=== PATIENT | female | born 1970 | race Caucasian/White ===

== ENCOUNTER → 2021-06-24 11:32 | Outpatient (CLI) | payer OTHER, SELFPAY ==
--- NOTE | ~2021-06-24 | MM_ITS ---
EXAMINATION: MM screening bren BI w vera HISTORY: Screening TECHNIQUE: Craniocaudal and mediolateral oblique 3-D tomosynthesis images were obtained and synthetic 2-D images were generated. CAD analysis was submitted and interpreted. COMPARISON: Comparison to multiple prior studies sequentially, with oldest reviewed study dated 09/03. BREAST PARENCHYMAL COMPOSITION: The breasts are heterogeneously dense, which may obscure small masses . FINDINGS: There is no evidence of suspicious mass, calcification, or architectural distortion to sugg est malignancy in either breast. There has been no suspicious interval change. IMPRESSION: 1. No mammographic evidence of malignancy. 2. Recommend routine screening mammography in one year. BI-RADS Category 1: Negative Reviewed, dictated and finalized at location A. [employer] ASS[employer]
== END ==
PROVIDERS: PCP Family Medicine; Visit Provider Family Medicine
DX: Z12.31 Encounter for screening mammogram for malignant neoplasm of breast (principal)
CPT/HCPCS: 77063; 77067

== ENCOUNTER 2022-06-10 00:43 | Day surgery (SDC) | payer OTHER, SELFPAY ==
[2022-05-26 15:23] VITALS: BMI 32.0
--- NOTE | 2022-06-09 15:09 | PM.HPGS ---
History of Present Illness History of Present Illness Consent: Risks, benefits, and alternatives have been discussed and questions answered. Patient agrees to proceed with procedure. Chief complaint: neoplasm screening Narrative: Tri Le is a 51 year old female who was referred for colon cancer screening. Review of Systems Review of Systems: All systems reviewed & are unremarkable except as noted in HPI and below PMFSH Past Medical History Medical History Essential hypertension Family history of rectal cancer FH: diabetes mellitus Hyperlipidemia, unspecified Hypothyroidism, unspecified Insomnia Moderate episode of recurrent major depressive disorder Family History Family History Father Rectal cancer Social History Social History Smoking status: Never smoker Second hand tobacco smoke exposure: No Alcohol intake: never Substance use: never Substance use type: does not use Living arrangements: with family Spiritual care concerns: No Meds Home Medications and Allergies Home Medications Medication Instructions Recorded Confirmed Type cetirizine 10 mg tablet 10 mg PO DAILY PRN Allergy Symptoms 10/29/21 05/26/22 History omeprazole 40 mg capsule,delayed 40 mg PO DAILY #30 caps 02/08/22 05/26/22 Rx release lisinopril 10 mg tablet 10 mg PO DAILY #90 tabs 05/17/22 05/26/22 Rx bupropion HCl 300 mg 24 hr tablet, 300 mg PO DAILY 05/26/22 05/26/22 History extended release levothyroxine 100 mcg tablet 100 mcg PO DAILY 05/26/22 05/26/22 History sertraline 100 mg tablet 100 mg PO DAILY 05/26/22 05/26/22 History simvastatin 20 mg tablet 20 mg PO DAILY 05/26/22 05/26/22 History Allergies Allergy/AdvReac Type Severity Reaction Status Date / Time No Known Allergies Allergy Mild Verified 05/26/22 15:23 Exam Const: General: alert Orientation/consciousness: patient oriented x3 Resp: Auscultation: clear to auscultation bilaterally Cardio: Rhythm: regular rhythm GI: GI Palp: Yes Soft to palpation and No Tenderness to palpation present (GI) Neuro: General: patient oriented x3 Assessment and Plan Assessment and plan (1) Colon cancer screening: Code(s): Z12.11 - Encounter for screening for malignant neoplasm of colon Status: Acute Assessment and Plan: Colonoscopy with possible biopsy or polypectomy or cautery or injection of substances.
[2022-06-10 09:12] VITALS: BP 144/84; PULSE 92; RESP 18; TEMP 36.6; O2SAT 100; BMI 35.2
[2022-06-10] MEDS: LACTATED RINGERS 1,000 ML 150 ML IV CONT (09:37)
[2022-06-10] MEDS: SIMETHICONE ORAL SUSPENSION 20 MG/0.3 ML 30 ML BOTTLE 0.6 ML IRRIGATION (10:57)
[2022-06-10 11:03] VITALS: BP 137/81; PULSE 85; RESP 19; O2SAT 100
[2022-06-10 11:13] VITALS: BP 139/80; PULSE 79; RESP 22; O2SAT 98
[2022-06-10 11:23] VITALS: BP 146/84; PULSE 73; RESP 20; O2SAT 100
== END 2022-06-10 11:32 | disposition home or self-care (01) ==
PROVIDERS: PCP Family Medicine; Visit Provider Internal Medicine Gastroenterology
PROC: 0DJD8ZZ Inspection of Lower Intestinal Tract, Via Natural or Artificial Opening Endoscopic (ICD-10-PCS; CPT 45378; principal; 2022-06-10 10:45)
DX: Z12.11 Encounter for screening for malignant neoplasm of colon (principal); K57.30 Diverticulosis of large intestine without perforation or abscess without bleeding; I10 Essential (primary) hypertension; E78.5 Hyperlipidemia, unspecified; E03.9 Hypothyroidism, unspecified; F33.1 Major depressive disorder, recurrent, moderate
CPT/HCPCS: 45378; J2704; J7120